=== PATIENT | male | born 1990 | race Caucasian/White ===

== ENCOUNTER 2021-05-22 18:02 | Emergency (ER) | payer MEDICARE, MEDICAID, SELFPAY ==
[2021-05-22 18:53] VITALS: BP 132/69; PULSE 72; RESP 16; TEMP 36.4; O2SAT 99; BMI 18.9
== END 2021-05-22 22:35 | disposition left against medical advice (07) ==
PROVIDERS: Emergency Provider Emergency Medicine
DX: S89.92XA Unspecified injury of left lower leg, initial encounter (principal)
CPT/HCPCS: 99281